=== PATIENT | female | born 1935 | race Caucasian/White ===

== ENCOUNTER 2017-09-20 18:21 | Emergency (ER) | payer MEDICARE, OTHER, MEDICAID ==
[2017-09-20] MEDS: ONDANSETRON 4 MG INJ IV (18:52)
[2017-09-20] MEDS: SOD CHLORIDE 0.9% 1,000 ML IV (18:53)
[2017-09-20 19:02] LABS: ADD MAN DIFF? NO
[2017-09-20 19:05] LABS: BASOPHILS % 0.1 % (0.0-2.0); EOSINOPHILS % 0.1 % (0.0-7.0); HEMATOCRIT 34.6 % (37.0-47.0); HEMOGLOBIN 11.3 g/dl (12.0-16.0); LYMPHOCYTES # 0.9 10^3/ul (0.8-2.9); LYMPHOCYTES % 8.7 % (15.0-51.0); MEAN CORPUSCULAR HEMOGLOBIN 31.6 pg (29.0-33.0); MEAN CORPUSCULAR HGB CONC 32.7 g/dl (32.0-37.0); MEAN CORPUSCULAR VOLUME 96.6 fl (82.0-101.0); MEAN PLATELET VOLUME 8.7 fl (7.4-10.4); MONOCYTE # 0.4 10^3/ul (0.3-0.9); MONOCYTES % 3.7 % (0.0-11.0); NEUTROPHIL # 9.3 10^3/ul (1.6-7.5); NEUTROPHILS % 87.1 % (39.0-77.0); PLATELET COUNT 340 10^3/UL (140-415); RED BLOOD COUNT 3.58 10^6/ul (4.20-5.40); RED CELL DISTRIBUTION WIDTH 13.2 % (11.5-14.5)
[2017-09-20 19:05] LABS: WHITE BLOOD COUNT 10.7 10^3/ul (4.8-10.8)
[2017-09-20 19:29] LABS: ALBUMIN/GLOBULIN RATIO 1.17; ANION GAP 17 (8-16)
[2017-09-20 19:37] LABS: ALANINE AMINOTRANSFERASE 33 IU/L (13-69); ALBUMIN 4.6 g/dl (3.3-4.9); ALKALINE PHOSPHATASE 80 IU/L (42-121); ASPARTATE AMINO TRANSFERASE 44 IU/L (15-46); BILIRUBIN,INDIRECT 0.4 mg/dl (0-1.1); BILIRUBIN,TOTAL 0.4 mg/dl (0.2-1.3); BLOOD UREA NITROGEN 14 mg/dl (7-20); CALCIUM 9.6 mg/dl (8.4-10.2); CARBON DIOXIDE 27 mmol/L (21-31); CHLORIDE 103 mmol/L (97-110); CREATININE 0.72 mg/dl (0.44-1.00); GLUCOSE 135 mg/dl (70-220); LIPASE 208 U/L (23-300); POTASSIUM 3.7 mmol/L (3.5-5.1); SODIUM 143 mmol/L (135-144); TOTAL PROTEIN 8.5 g/dl (6.1-8.1)
[2017-09-20 19:44] LABS: TROPONIN-I < 0.012 ng/ml (0.000-0.120)
[2017-09-20 20:37] LABS: ADD UMIC YES; UR AMORPHOUS CRYSTAL FEW /HPF (NONE SEEN); UR ASCORBIC ACID 40 mg/dL (NEGATIVE); UR BACTERIA FEW /HPF (NONE SEEN); UR BILIRUBIN (Dip) NEGATIVE (NEGATIVE); UR BLOOD (Dip) NEGATIVE (NEGATIVE); UR CLARITY SLIGHTLY CLOUDY (CLEAR); UR COLOR YELLOW (YELLOW); UR GLUCOSE (Dip) NEGATIVE (NEGATIVE); UR KETONES (Dip) NEGATIVE (NEGATIVE); UR LEUKOCYTE ESTERASE (Dip) 3+ Leu/ul (NEGATIVE); UR NITRITE (Dip) NEGATIVE (NEGATIVE); UR RBC 4 /HPF (0-5); UR SPECIFIC GRAVITY (Dip) 1.013 (1.003-1.030); UR SQUAMOUS EPITHELIAL CELL FEW /HPF (FEW); UR TOTAL PROTEIN (Dip) 1+ mg/dl (NEGATIVE); UR UROBILINOGEN (Dip) NEGATIVE (NEGATIVE); UR WBC 8 /HPF (0-5)
[2017-09-20] MEDS: ACETAMINOPHEN 325 MG TAB PO (23:39)
== END 2017-09-21 01:27 | disposition home or self-care (01) ==
LOC: E/R 09-21 01:27
DX: R11.2 Nausea with vomiting, unspecified (principal); I10 Essential (primary) hypertension; R10.9 Unspecified abdominal pain
CPT/HCPCS: 36415; 71045; 74176; 80053; 81001; 83690; 84484; 85025; 87086; 93005; 96374; 99285-25

== ENCOUNTER 2018-08-14 04:44 | Inpatient (IN) | payer MEDICARE, OTHER ==
[2018-08-14 05:08] LABS: ADD MAN DIFF? NO
[2018-08-14 05:15] LABS: BASOPHILS % 0.3 % (0.0-2.0); EOSINOPHILS % 0.3 % (0.0-7.0); HEMOGLOBIN 11.6 g/dl (12.0-16.0); LYMPHOCYTES # 1.6 10^3/ul (0.8-2.9); LYMPHOCYTES % 20.8 % (15.0-51.0); MEAN CORPUSCULAR HEMOGLOBIN 31.4 pg (29.0-33.0); MEAN CORPUSCULAR HGB CONC 34.1 g/dl (32.0-37.0); MEAN CORPUSCULAR VOLUME 91.9 fl (82.0-101.0); MEAN PLATELET VOLUME 9.2 fl (7.4-10.4); MONOCYTE # 0.7 10^3/ul (0.3-0.9); MONOCYTES % 9.1 % (0.0-11.0); NEUTROPHIL # 5.2 10^3/ul (1.6-7.5); NEUTROPHILS % 69.1 % (39.0-77.0); PLATELET COUNT 306 10^3/UL (140-415)
[2018-08-14 05:15] LABS: WHITE BLOOD COUNT 7.5 10^3/ul (4.8-10.8)
[2018-08-14] MEDS: ONDANSETRON 4 MG INJ IV ×2 (05:24→16:58)
[2018-08-14] MEDS: LIDOCAINE/MYLANTA 40 ML BTL PO (05:24)
[2018-08-14] MEDS: morphine 2 MG INJ IV ×4 (05:25→16:52)
[2018-08-14 05:35] LABS: ALBUMIN 4.7 g/dl (3.3-4.9); ALKALINE PHOSPHATASE 272 IU/L (42-121); ANION GAP 10 (5-13); BILIRUBIN,INDIRECT 0.8 mg/dl (0-1.1); BILIRUBIN,TOTAL 1.2 mg/dl (0.2-1.3); BLOOD UREA NITROGEN 13 mg/dl (7-20); CALCIUM 10.2 mg/dl (8.4-10.2); CARBON DIOXIDE 32 mmol/L (21-31); CHLORIDE 101 mmol/L (97-110); CREATININE 0.71 mg/dl (0.44-1.00); GLUCOSE 225 mg/dl (70-220); POTASSIUM 4.1 mmol/L (3.5-5.1); SODIUM 143 mmol/L (135-144); TOTAL PROTEIN 8.3 g/dl (6.1-8.1)
[2018-08-14 05:46] LABS: ALANINE AMINOTRANSFERASE 2055 IU/L (13-69); TROPONIN-I < 0.012 ng/ml (0.000-0.120)
[2018-08-14] MEDS ORDERED: CEFEPIME 2GM/50 ML (PMX) 50 ML IVPB (05:53)
[2018-08-14] MEDS: PIPER-TAZO 3.375 GM IV (PMX) 100 ML IVPB (05:56)
[2018-08-14] MEDS: VANCOMYCIN 1 GM (PMX) 250 ML IVPB (06:00)
[2018-08-14 06:50] LABS: ASPARTATE AMINO TRANSFERASE 2670 IU/L (15-46)
[2018-08-14] MEDS: hydrALAzine 20 MG INJ IV (07:46)
[2018-08-14 07:52] LABS: HAAIG REFLEX REFLEX FILED
[2018-08-14 08:08] LABS: LIPASE 85619 U/L (23-300)
[2018-08-14 08:29] LABS: SALICYLATE < 1.0 mg/dl (5.0-30.0)
[2018-08-14 08:29] LABS: ACETAMINOPHEN < 10.0 ug/ml (10.0-30.0)
[2018-08-14 08:58] LABS: HEPATITIS B SURFACE ANTIGEN NEGATIVE (NEGATIVE)
[2018-08-14 09:16] LABS: HEPATITIS B CORE ANTIBODY NEGATIVE (NEGATIVE); HEPATITIS C VIRAL ANTIBODY NEGATIVE (NEGATIVE)
[2018-08-14 09:44] LABS: HEPATITIS B SURFACE ANTIBODY POSITIVE (NEGATIVE)
[2018-08-14] MEDS ORDERED: hydrALAzine 20 MG INJ IV (11:30)
[2018-08-14] MEDS ORDERED: NACL 0.9% 3 ML SYG IV (11:30)
[2018-08-14] MEDS: SOD CHLORIDE 0.9% 1,000 ML IV ×3 (11:51→20:17)
[2018-08-14 11:55] LABS: CHOL/HDL RATIO 2.6 RATIO; HDL CHOLESTEROL 79 mg/dl (33-92); LDL CHOLESTEROL,CALCULATED 116 mg/dl; TRIGLYCERIDES 72 mg/dl (0-149)
[2018-08-14 11:55] LABS: CHOLESTEROL 209 mg/dl (100-200)
[2018-08-14 11:58] LABS: HEMOGLOBIN A1C 5.7 % (0-5.9)
[2018-08-14 12:03] LABS: B-TYPE NATRIURETIC PEPTIDE 904 PG/ML (0-450)
[2018-08-14] MEDS: FAMOTIDINE 20 MG INJ IV ×2 (12:57→20:17)
[2018-08-14] MEDS ORDERED: PANTOPRAZOLE 40 MG INJ IV (18:00)
[2018-08-14] MEDS: LORAZEPAM 2 MG INJ IV (19:49)
[2018-08-15 06:15] LABS: ADD MAN DIFF? NO
[2018-08-15 06:25] LABS: BASOPHILS % 0.3 % (0.0-2.0); EOSINOPHILS # 0.1 10^3/ul (0.0-0.5); EOSINOPHILS % 0.7 % (0.0-7.0); HEMATOCRIT 31.5 % (37.0-47.0); HEMOGLOBIN 10.1 g/dl (12.0-16.0); LYMPHOCYTES # 1.1 10^3/ul (0.8-2.9); MEAN CORPUSCULAR HEMOGLOBIN 30.7 pg (29.0-33.0); MEAN CORPUSCULAR HGB CONC 32.1 g/dl (32.0-37.0); MEAN CORPUSCULAR VOLUME 95.7 fl (82.0-101.0); MEAN PLATELET VOLUME 9.4 fl (7.4-10.4); MONOCYTE # 0.6 10^3/ul (0.3-0.9); MONOCYTES % 7.7 % (0.0-11.0); NEUTROPHIL # 5.3 10^3/ul (1.6-7.5); NEUTROPHILS % 74.9 % (39.0-77.0); PLATELET COUNT 260 10^3/UL (140-415); RED BLOOD COUNT 3.29 10^6/ul (4.20-5.40); RED CELL DISTRIBUTION WIDTH 12.2 % (11.5-14.5)
[2018-08-15 06:25] LABS: WHITE BLOOD COUNT 7.1 10^3/ul (4.8-10.8)
[2018-08-15 06:38] LABS: HEMOGLOBIN A1C 5.7 % (0-5.9)
[2018-08-15 06:45] LABS: ALBUMIN/GLOBULIN RATIO 1.17; ALKALINE PHOSPHATASE 287 IU/L (42-121); ANION GAP 8 (5-13); BILIRUBIN,INDIRECT 0.7 mg/dl (0-1.1); BILIRUBIN,TOTAL 0.7 mg/dl (0.2-1.3); BLOOD UREA NITROGEN 16 mg/dl (7-20); CALCIUM 8.7 mg/dl (8.4-10.2); CARBON DIOXIDE 30 mmol/L (21-31); CHLORIDE 106 mmol/L (97-110); CREATININE 0.75 mg/dl (0.44-1.00); GLUCOSE 103 mg/dl (70-220); POTASSIUM 3.6 mmol/L (3.5-5.1); SODIUM 144 mmol/L (135-144); TOTAL PROTEIN 7.4 g/dl (6.1-8.1)
[2018-08-15 07:12] LABS: ALANINE AMINOTRANSFERASE 1278 IU/L (13-69); AMYLASE 1929 U/L (11-123); ASPARTATE AMINO TRANSFERASE 977 IU/L (15-46)
[2018-08-15 07:17] LABS: MAGNESIUM 2.1 mg/dl (1.7-2.5)
[2018-08-15 07:17] LABS: PHOSPHORUS 3.5 mg/dl (2.5-4.9)
[2018-08-15 07:25] LABS: LIPASE 7546 U/L (23-300)
[2018-08-15] MEDS: FAMOTIDINE 20 MG INJ IV ×2 (08:05→21:13)
[2018-08-15] MEDS: SOD CHLORIDE 0.9% 1,000 ML IV ×2 (13:11→19:30)
[2018-08-15] MEDS: ACETAMINOPHEN 650MG/20.3ML CUP PO (20:58)
[2018-08-16] MEDS: SOD CHLORIDE 0.9% 1,000 ML IV ×2 (03:30→08:45)
[2018-08-16 06:00] LABS: ADD MAN DIFF? NO
[2018-08-16 06:09] LABS: BASOPHILS % 0.2 % (0.0-2.0); EOSINOPHILS # 0.1 10^3/ul (0.0-0.5); EOSINOPHILS % 1.1 % (0.0-7.0); HEMATOCRIT 29.3 % (37.0-47.0); HEMOGLOBIN 9.7 g/dl (12.0-16.0); LYMPHOCYTES # 1.3 10^3/ul (0.8-2.9); LYMPHOCYTES % 19.5 % (15.0-51.0); MEAN CORPUSCULAR HEMOGLOBIN 31.7 pg (29.0-33.0); MEAN CORPUSCULAR HGB CONC 33.1 g/dl (32.0-37.0); MEAN CORPUSCULAR VOLUME 95.8 fl (82.0-101.0); MEAN PLATELET VOLUME 9.5 fl (7.4-10.4); MONOCYTE # 0.7 10^3/ul (0.3-0.9); MONOCYTES % 10.8 % (0.0-11.0); NEUTROPHIL # 4.5 10^3/ul (1.6-7.5); NEUTROPHILS % 68.1 % (39.0-77.0); PLATELET COUNT 230 10^3/UL (140-415); RED BLOOD COUNT 3.06 10^6/ul (4.20-5.40)
[2018-08-16 06:09] LABS: WHITE BLOOD COUNT 6.6 10^3/ul (4.8-10.8)
[2018-08-16 06:25] LABS: PHOSPHORUS 2.9 mg/dl (2.5-4.9)
[2018-08-16 06:40] LABS: ALANINE AMINOTRANSFERASE 779 IU/L (13-69); ALBUMIN 3.7 g/dl (3.3-4.9); ALBUMIN/GLOBULIN RATIO 1.19; ALKALINE PHOSPHATASE 210 IU/L (42-121); AMYLASE 475 U/L (11-123); ANION GAP 4 (5-13); ASPARTATE AMINO TRANSFERASE 415 IU/L (15-46); BILIRUBIN,INDIRECT 0.6 mg/dl (0-1.1); BILIRUBIN,TOTAL 0.6 mg/dl (0.2-1.3); BLOOD UREA NITROGEN 15 mg/dl (7-20); CALCIUM 8.5 mg/dl (8.4-10.2); CARBON DIOXIDE 30 mmol/L (21-31); CHLORIDE 106 mmol/L (97-110); CREATININE 0.59 mg/dl (0.44-1.00); GLUCOSE 96 mg/dl (70-220); LIPASE 1053 U/L (23-300); POTASSIUM 3.2 mmol/L (3.5-5.1); SODIUM 140 mmol/L (135-144); TOTAL PROTEIN 6.8 g/dl (6.1-8.1)
[2018-08-16] MEDS: FAMOTIDINE 20 MG INJ IV (08:45)
[2018-08-18 15:02] LABS: MITOCHONDRIAL TB NEGATIVE (NEGATIVE); SMOOTH MUSCLE AB SCREEN NEGATIVE (NEGATIVE)
[2018-08-18 19:47] LABS: ANA SCREEN POSITIVE (NEGATIVE)
[2018-08-19 19:12] LABS: ANA PATTERN HOMOGENEOUS
== END 2018-08-16 14:20 | disposition home or self-care (01) | DRG 440 ==
LOC: E/R 04:44 → 6WM 06:17
DX: K85.90 Acute pancreatitis without necrosis or infection, unspecified (principal); R74.0 Nonspecific elevation of levels of transaminase and lactic acid dehydrogenase [LDH]; R00.1 Bradycardia, unspecified; E78.5 Hyperlipidemia, unspecified; I10 Essential (primary) hypertension
CPT/HCPCS: 36415; 70450; 71045; 74176; 74181; 80053; 80061; 80307; 82150; 83036; 83605; 83690; 83735; 83880; 84100; 84484; 85025; 86038; 86255; 86704; 86706; 86708; 86709; 86803; 87040-91; 87340; 93005; 96374; 96375; 99285-25; G0378